=== PATIENT | female | born 1965 | race African-American/Black ===

== ENCOUNTER 2018-06-07 09:08 | Emergency (ER) | payer OTHER ==
[~2018-06-07] VITALS: Ht 162.6 cm; Wt 93.8 kg
[2018-06-07 09:44] LABS: BASOPHIL (%) 0.2 % (0-1); EOSINOPHIL (%) 0 % (0-5); HEMATOCRIT 37.1 % (36.0-46.0); HEMOGLOBIN 13.2 G/DL (11.9-15.5); IMMATURE GRANULOCYTE (%) 0.4 % (0.0-0.7); LYMPHOCYTE (%) 17.4 % (15-42); LYMPHOCYTE COUNT 1.6 K/uL (1.0-2.8); MCH 26.3 PG (29.0-34.0); MCHC 35.6 G/DL (30.0-36.0); MCV 73.9 FL (83-99); MONOCYTE (%) 7.9 % (3-12); MONOCYTE COUNT 0.7 K/uL (0-0.8); NEUTROPHIL (%) 74.1 % (45-76); NEUTROPHIL COUNT 6.8 K/uL (1.8-6.4); PLATELET COUNT 238 K/uL (156-360); RBC DIS.WIDTH-CV 13.4 % (11.8-14.6); RBC DIS.WIDTH-SD 35.8 % (39-53); RED BLOOD COUNT 5.02 M/uL (3.80-5.20); WHITE BLOOD COUNT 9.2 K/uL (4.1-10.2)
[2018-06-07 09:51] LABS: CHLORIDE 95 mEq/L (99-109); POTASSIUM 2.9 mEq/L (3.7-5.4); SODIUM 132 mEq/L (136-147)
[2018-06-07 09:53] LABS: GLUCOSE 111 mg/dL (70-99)
[2018-06-07 09:57] LABS: CREATININE 1.3 mg/dL (0.6-1.3); UREA NITROGEN (BUN) 24 mg/dL (9-23)
[2018-06-07 09:59] LABS: GFR ESTIMATE (CALCULATED) 45 mL/min/
[2018-06-07 11:25] LABS: APPEARANCE CLOUDY ((CLEAR)); BILIRUBIN NEGATIVE; BLOOD LARGE; COLOR YELLOW ((YELLOW)); GLUCOSE (STRIP) NEGATIVE; KETONES NEGATIVE; LEUKOCYTES LARGE; NITRITE POSITIVE; PROTEIN (STRIP) 100; SPECIFIC GRAVITY 1.009 (1.000-1.030); UROBILINOGEN 0.2 MG/DL (0.2-1.0)
[2018-06-07 11:49] LABS: BACTERIA 3+ /HPF; EPITHELIAL CELLS 1+ /HPF; MUCUS NONE SEEN /LPF; UCUL ADDED? YES; WHITE BLOOD CELLS TNTC /HPF (0-5)
[2018-06-07] MEDS ORDERED: K-DUR20 MEQ PO (12:08)
[2018-06-07] MEDS ORDERED: KEFLEX500 MG PO (12:08)
[2018-06-07 12:24] VITALS: BP 107/80
== END 2018-06-07 12:25 | disposition home or self-care (01) ==
LOC: EME 09:08
DX: N39.0 Urinary tract infection, site not specified (principal); E87.6 Hypokalemia; I10 Essential (primary) hypertension
CPT/HCPCS: 71046; 80048; 81003; 83605; 85025; 87077; 87086; 87186; 99281; 99284; J7030

== ENCOUNTER 2018-06-09 21:42 | Emergency (ER) | payer OTHER ==
[~2018-06-09] VITALS: Ht 162.6 cm; Wt 94.8 kg
[~2018-06-09 21:42] MED LIST: K-DUR20 MEQ PO; KEFLEX500 MG PO
[2018-06-10] MEDS ORDERED: MACROBID100 MG PO (00:12)
[2018-06-10 00:30] VITALS: BP 99/63
== END 2018-06-10 00:32 | disposition home or self-care (01) ==
LOC: EME 21:42
DX: N39.0 Urinary tract infection, site not specified (principal); Z16.19 Resistance to other specified beta lactam antibiotics; I10 Essential (primary) hypertension
CPT/HCPCS: 99281; 99285; J0295; J7030; J7050